=== PATIENT | male | born 2000 | race Caucasian/White ===

== ENCOUNTER 2024-08-24 22:43 | Emergency (ER) | payer MEDICAID ==
[~2024-08-24] VITALS: Ht 175.3 cm; Wt 76.0 kg
[2024-08-24 22:46] VITALS: O2SAT 98
[2024-08-25] MEDS: LIDOCAINE HCL/PF 1% 10 MG/ML 5ML VIAL INFIL ONE (01:45)
[2024-08-25] MEDS: TETANUS, DIPHTHERIA, PERTUSSIS VAC/PF 0.5ML (>10YR OLD) IM ONE (02:32)
[2024-08-25] MEDS: IBUPROFEN 600MG TABLET PO ONE (02:33)
[2024-08-25] MEDS: BACITRACIN ZINC OINT UDPKT TOP ONE (02:34)
[2024-08-25 02:54] VITALS: BP 136/90; PULSE 79; RESP 20; TEMP 37.1; O2SAT 100
== END 2024-08-25 03:39 | disposition home or self-care (01) ==
LOC: ER 22:43
DX: S61.411A Laceration without foreign body of right hand, initial encounter (principal); W26.0XXA Contact with knife, initial encounter; Y93.89 Activity, other specified; Y92.89 Other specified places as the place of occurrence of the external cause; Y99.8 Other external cause status
CPT/HCPCS: 12002; 99283; 90715; 90471; J2003; Z7610 ×2